=== PATIENT | female | born 1990 | race Caucasian/White ===

== ENCOUNTER 2021-11-10 14:45 | Day surgery (SDC) | payer BC, OTHER ==
[2021-11-10] MEDS ORDERED: Sodium Chloride 0.9(Preservative Free) 10 ML IJ ONE (14:46)
[2021-11-10] MEDS ORDERED: Depo-Medrol 40 MG/ML IM ONE (14:46)
[2021-11-10] MEDS ORDERED: DIPRIVAN 200 MG/20 ML IV ONE (16:17)
[2021-11-10] MEDS ORDERED: Lactated Ringers 1,000 ML IV ONE (16:38)
[2021-11-10] MEDS ORDERED: TORAdol 30 mg Injection ONE (16:42)
--- NOTE | 2021-11-11 18:31 | XRAY ---
23 seconds of fluoroscopy was used in surgery for a caudal BEKA.
--- NOTE | 2021-11-12 15:40 | XRAY ---
Indication: Midline Caudal BEKA. Intraoperative fluoroscopy provided for 23 seconds. 2 digital spot images submitted for interpretation demonstrates caudal needle tip projecting mid sacrum. Small amount of contrast injected for needle tip placement. Correlate with intraoperative findings/report.
== END 2021-11-10 16:43 | disposition home or self-care (01) ==
LOC: SDC-PAIN 14:45
PROVIDERS: ATTEND Psychiatry & Neurology Pain Medicine
DX: M54.16 Radiculopathy, lumbar region (principal); Z79.899 Other long term (current) drug therapy
CPT/HCPCS: 62323; 72220; 77003; 81025; J1030; J1885; J2704; Q9966

== ENCOUNTER 2021-12-22 12:37 | Day surgery (SDC) | payer OTHER ==
[2021-12-22] MEDS ORDERED: Marcaine Mpf 0.5% Vial 30 Ml IJ ONE (12:38)
[2021-12-22] MEDS ORDERED: Depo-Medrol 40 MG/ML IM ONE (12:38)
[2021-12-22] MEDS ORDERED: DIPRIVAN 200 MG/20 ML IV ONE (15:10)
[2021-12-22] MEDS ORDERED: Lactated Ringers 1,000 ML IV ONE (15:43)
--- NOTE | 2021-12-22 19:41 | XRAY ---
Indication: Bilateral SI joint injection. Intraoperative fluoroscopy provided for 20 seconds. 4 digital spot image submitted for interpretation demonstrates posterior needle tip projecting over the inferior left and right SI joint. Correlate with intraoperative findings/report.
== END 2021-12-22 15:33 | disposition home or self-care (01) ==
LOC: SDC-PAIN 12:37
PROVIDERS: ATTEND Psychiatry & Neurology Pain Medicine
DX: M46.1 Sacroiliitis, not elsewhere classified (principal); Z79.899 Other long term (current) drug therapy
CPT/HCPCS: 27096; 72202; 77002; 81025; G0260; J1030; J2704